=== PATIENT | female | born 1995 | race African-American/Black ===

== ENCOUNTER 2022-12-23 22:36 | Emergency (ER) | payer MEDICAID ==
[~2022-12-23] VITALS: Ht 157.5 cm; Wt 58.5 kg
[2022-12-23 23:00] VITALS: BP 142/74; TEMP 97.8
[2022-12-23] MEDS ORDERED: TDAP [DIPH/PERTUSSIS/TET] 0.5 ML VIAL IM ONE ×2 (23:29→23:30)
[2022-12-23 23:35] VITALS: O2SAT 97
== END 2022-12-23 23:35 | disposition home or self-care (01) ==
LOC: ER 22:38
DX: S91.331A Puncture wound without foreign body, right foot, initial encounter (principal); Z60.2 Problems related to living alone; W22.8XXA Striking against or struck by other objects, initial encounter; Y93.89 Activity, other specified; Y92.89 Other specified places as the place of occurrence of the external cause; Y99.8 Other external cause status
CPT/HCPCS: 90715